=== PATIENT | female | born 1950 | race Caucasian/White ===

== ENCOUNTER 2017-04-29 13:54 | Emergency (ER) | payer BC, OTHER ==
[2017-04-29 14:07] VITALS: PULSE 74; TEMP 98.2
--- NOTE | 2017-04-29 14:34 | EDPHY ---
General Narrative: CHIEF COMPLAINT: Fall, multiple injuries HISTORY OF PRESENT ILLNESS: Patient presents with complaints of fall while hiking. She was [place] just prior to arrival. She tripped on some rocks, striking her head on the rocks with brief loss of consciousness as described by her daughter at bedside. This was less than 30 seconds per she also struck her left hand, left elbow left shoulder. She is complaining of pain in the scalp, left shoulder, left hand, left ribs. No shortness of breath. No nausea or vomiting. Some mild blurred vision on the left. No diplopia. No neck pain. No chest pain. No abdominal pain. No injuries to the legs. All areas are worse with palpation and movement. No radiating pain. Minimal improvement rest. Tetanus is up-to-date less than 10 years ago. No other associated complaints or modifying factors. REVIEW OF SYSTEMS: Ten systems reviewed and are negative unless otherwise noted in the HPI PCP: None locally SPECIALISTS: None locally PAST MEDICAL HISTORY: Dyslipidemia, hypothyroid, depression PAST SURGICAL HISTORY: None recently SOCIAL HISTORY: Nonsmoker. Visiting her family here in [place] the s FAMILY HISTORY: Noncontributory EXAMINATION General Appearance: Alert, no distress Head: normocephalic. Extensive scalp laceration as noted below. No Laboy sign. No raccoon eyes. Eyes: Pupils equal and round, no conjunctival pallor or injection ENT, Mouth: Mucous membranes moist. Uvula midline. Airway is widely patent. No dental fracture. No mucosal fracture Neck: Normal inspection, supple, non-tender. Painless range of motion all planes. Respiratory: Lungs are clear to auscultation. No wheezing, rhonchi or crackles tenderness palpation on the left posterior axillary line. No paradoxical movements or crepitus. No subcutaneous emphysema Cardiovascular: Regular rate and rhythm. No murmur. Pulses intact distally with symmetric radial pulses 2+. Symmetric DP pulses 2+. Gastrointestinal: Abdomen is soft and nontender Back: No midline tenderness. No crepitus. No step-off or deformity Neurological: A&O, nonfocal, strength is symmetric in all extremities. Skin: Warm and dry. Superficial abrasions to the left knee, left posterior hand, left elbow. 10 cm laceration to the left occipital scalp. Difficult to visualize the galea prior to irrigation. Extremities: Tenderness of the left shoulder. Range of motion is limited due to pain. She does retain some abduction, internal rotation and external rotation. Minimal tenderness of the left elbow. No tenderness with straightening of the left elbow. Tenderness of the left hand over the 5th metacarpal. No left anatomic snuffbox tenderness. Lower extremities symmetric range of motion without pain. Psychiatric: Mood and affect normal DIFFERENTIAL DIAGNOSES: Including but not limited to concussion, intracranial hemorrhage, skull fracture , elbow contusion, scalp laceration, shoulder sprain, humeral fracture, hand sprain, hand fracture MDM: 2:30 p.m. Mechanical fall with closed head injury concussion. There is scalp lacerations that are too difficult to visualize due to dried blood. This will require re- evaluation after the wounds are clean. She does have pain in the shoulder, elbow and hand, x-rays have been ordered. She also has left-sided rib pain, thus the chest x-ray has been ordered. Her vital signs are stable and she is in no acute distress. Her tetanus is up-to-date. 3:25 p.m. Contacted by radiologist Dr. Lucio. CT scans of the head reveals no acute findings. CT of the cervical spine reveals abnormality of T1-T2 of uncertain chronicity. I discussed this with the patient she confirms previous injury remotely in this area. She has no pain in this area at this time. 3:50 p.m. Plain films as read by me reveal comminuted fracture of the left 5th metacarpal. I do not appreciate any fracture on the shoulder x-ray. I have re- evaluated the patient and I anesthetized the scalp laceration. This is a partial-thickness laceration through the entire epidermal and dermal layer. I do not appreciate any compromise of the galea. This will be extensively irrigated for re-evaluation. 4:45 p.m. Rib x-ray is negative for any acute finding. Shoulder x-ray negative for acute finding. Hand x-ray confirms 5th metacarpal fracture at the base. 4:50 p.m. Scalp laceration has been repaired. No compromise of the galea. Stapled with excellent approximation of wound borders. Wound care discussed at length. She will be placed in the left upper extremity ulnar gutter. They are leaving for [place] tomorrow. No contact her established primary care physician. She will discuss orthopedic referral/hand surgeon referral for the hand fracture. We discussed pain management, ice and elevation, ED precautions. The patient, her daughter, and her spouse are all comfortable with this plan. She is awake alert, no acute distress. She is laughing about the incident and discharged home in stable condition. PROCEDURE: Laceration repair Consent: Verbal Location: Left parietal-occipital scalp Length of repair: 10 cm Complexity: Complex Layer involvement: Partial thickness Anesthesia: Local. 1% lidocaine with epinephrine. 10 mL Irrigation: Extensive Debridement: Minimal, 2 cm Procedure description: Following good anesthesia, the wound was copiously irrigated. Wound bed was explored with sterile glove and there is no foreign body noted. 2 cm of excisional debridement performed Wound borders were approximated well with good hemostasis. Tolerated well without complication. Suture/Staple material: 10 marleni and 2 subcutaneous sutures using 5-0 Vicryl Wound care: Routine as discussed Suture/Staple removal: 10-14 Days - Diagnostics Imaging Results: Imaging Impressions Cervical Spine CT 04/29/17 14:30 Impression: 1. Mild anterior height reduction at T1 and T2, age-indeterminate, likely old. If symptoms persist and clinical suspicion warrants, consider MRI. 2. Multilevel degenerative change with grade 1 anterolisthesis of C7 on T1. 3. Additional findings, as above. Findings discussed with Khoi Moody PA-C on April 29, [address] 04/29/17 14:30 Impression: 1. Left parietal scalp laceration with no acute intracranial findings. 2. Diffuse cerebral atrophy with periventricular and subcortical low attenuation consistent with chronic microvascular ischemic gliosis. Findings discussed with Khoi Moody 04/29/2017 at 15:09. Ribs w/Chest X-Ray 04/29/17 14:30 Impression: Negative. No rib fracture or pneumothorax. Hand X-Ray 04/29/17 14:31 Impression: Acute comminuted intraarticular fracture involving the base of the 5th metacarpal. Shoulder X-Ray 04/29/17 14:31 Impression: 1. No acute fracture or AC separation. 2. Osteoarthritis and benign os acromiale. - History Smoking Status: Never smoked - Objective Vital Signs: Initial Vital Signs Temperature (C) 98.2 F 04/29/17 14:05 Heart Rate 74 04/29/17 14:05 Respiratory Rate 16 04/29/17 14:05 Blood Pressure 141/84 H 04/29/17 14:05 O2 Sat (%) 96 04/29/17 14:05 O2 Delivery Mode Room Air Allergies/Adverse Reactions: Penicillins Allergy (Verified 04/29/17 14:05) Home Medications: Medication Instructions Recorded Cephalexin [Keflex (*)] 500 mg PO TID #30 cap 04/29/17 Citalopram 04/29/17 Levothyroxine 04/29/17 Simvastatin 04/29/17 oxyCODONE HCL/ACETAMINOPHEN 1 each PO Q4-6PRN PRN #19 tablet 04/29/17 [Percocet 5-325 mg Tablet] Medications Given: Discontinued Medications Oxycodone/Acetaminophen (Percocet 5/325) 1 tab PO EDNOW ONE Stop: 04/29/17 15:30 Last Admin: 04/29/17 15:33 Dose: 1 tab Departure - Departure Disposition: Home, Routine, Self-Care Clinical Impression: Scalp laceration Qualifiers: Encounter type: initial encounter Qualified Code(s): S01.01XA - Laceration without foreign body of scalp, initial encounter Closed head injury with concussion Qualifiers: Encounter type: initial encounter Loss of consciousness presence/duration: with LOC of 30 min or less Qualified Code(s): S06.0X1A - Concussion with loss of consciousness of 30 minutes or less, initial encounter Hand fracture, left Qualifiers: Encounter type: initial encounter Fracture type: closed Qualified Code(s): S62.92XA - Unspecified fracture of left wrist and hand, initial encounter for closed fracture Condition: Good Instructions: Hand Fracture (ED), Concussion (ED), Shoulder Sprain (ED), Staple Care (ED) Additional Instructions: 1. Daily wound care as discussed 2. Contact your primary care physician in [place] for an appointment upon return home this week 3. ED precautions for worsening symptoms, headache, visual disturbance, vomiting , neck pain or stiffness 4. Follow up with your primary care physician or emergency department in 10-14 days for staple 5. Follow up with her orthopedist/hand surgeon in [place] for definitive care of the left hand fracture Referrals: Deborah Serra MD [Medical Doctor] - As per Instructions Prescriptions: Cephalexin [Keflex (*)] 500 mg PO TID #30 cap oxyCODONE HCL/ACETAMINOPHEN [Percocet 5-325 mg Tablet] 1 each PO Q4-6PRN PRN # 19 tablet PRN Reason: Pain, Breakthrough
[2017-04-29] MEDS ORDERED: OXYCODONE/APAP 5/325 TAB PO ONE (15:29)
[2017-04-29 15:36] VITALS: BP 128/82; O2SAT 97
[2017-04-29 17:20] VITALS: RESP 17
== END 2017-04-29 17:20 | disposition home or self-care (01) ==
PROC: 0HQ0XZZ Repair Scalp Skin, External Approach (ICD-10-PCS; principal; 2017-04-29)
DX: S62.317A Displaced fracture of base of fifth metacarpal bone, left hand, initial encounter for closed fracture (principal); S06.0X1A Concussion with loss of consciousness of 30 minutes or less, initial encounter; S01.01XA Laceration without foreign body of scalp, initial encounter; W01.198A Fall on same level from slipping, tripping and stumbling with subsequent striking against other object, initial encounter; Y99.8 Other external cause status; Y93.01 Activity, walking, marching and hiking
CPT/HCPCS: A4565